=== PATIENT | female | born 1990 | race Caucasian/White ===

== ENCOUNTER → 2022-12-28 09:56 | Outpatient (CLI) | payer OTHER, MEDICAID, SELFPAY ==
[2022-12-28 11:30] LABS: Add Manual Diff / Slide Review NO; Basophils Absolute Auto 0 /uL (0-100); Basophils Percent Auto 0.6 % (0-2); Eosinophils Absolute Auto 0 /uL (0-450); Eosinophils Percent Auto 0.7 % (2-4); Hematocrit 37.5 % (36-46); Hemoglobin 13.5 g/dL (12.0-16.0); Lymphocytes Absolute Auto 1500 /uL (1100-4500); Lymphocytes Percent Auto 23.9 % (25-40); Mean Corpuscular HGB Conc 35.9 % (30-36); Mean Corpuscular Hemoglobin 32.7 PG (26-34); Mean Corpuscular Volume 91.1 fL (80-100); Monocytes Absolute Auto 500 /uL (0-900); Monocytes Percent Auto 7.1 % (3-14); Neutrophils Absolute Auto 4400 /uL (1500-7000); Neutrophils Percent Auto 67.7 % (50-75); Platelet Count 278 X10^3/uL (150-400); Red Blood Cell Count 4.12 X10^6/uL (4.0-5.2); Red Cell Distribution Width 13.5 % (11.6-14.8); White Blood Cell Count 6.5 X10^3/uL (4.5-11.0)
[2022-12-28 12:04] LABS: BUN Creatinine Ratio 11.1 (6-22); Blood Urea Nitrogen 5 mg/dL (7-17); Calcium 9.3 mg/dL (8.4-10.2); Carbon Dioxide 23 mmol/L (22-32); Chloride 100 mmol/L (98-107); Cholesterol 185 mg/dL (140-199); Estimated Glomerular Filt Rate > 60 mL/min (>60); Glucose 87 mg/dL (70-100); HDL Cholesterol 57 mg/dL (40-60); HEMOLYSIS < 15 (0-50); LDL Cholesterol Calculated 108 mg/dL (<100); Potassium 3.6 mmol/L (3.4-5.1); Sodium 134 mmol/L (137-145); Triglycerides 102 mg/dL (35-150)
[2022-12-28 12:21] LABS: Free T4, Direct Thyroxine 1.24 ng/dL (0.78-2.19)
[2022-12-28 12:34] LABS: Thyroid Stimulating Hormone 0.411 uIU/mL (0.47-4.68)
== END ==
PROVIDERS: PCP Family Medicine; Referring Provider Nurse Practitioner Acute Care; Visit Provider Nurse Practitioner Acute Care
DX: R00.2 Palpitations (principal)
CPT/HCPCS: 36415; 80048; 80061; 84439; 84443; 85025

== ENCOUNTER → 2023-03-20 12:43 | Outpatient (CLI) | payer OTHER, MEDICAID, SELFPAY ==
--- NOTE | 2023-03-20 12:45 | DI.US.S_ITS ---
PROCEDURE: US OB >= 14 WEEKS FETUS INDICATIONS: ANATOMY SCAN OUTSIDE/PRIOR DATING DATA: Last menstrual period (LMP): 11/09/2022. LMP-based estimated date of delivery (MIKA): 08/16/2023. First dating scan (date and location): 03/20/2023. Estimated date of delivery (MIKA) from first dating scan: 08/09/2023. The calculations are made using the ultrasound MIKA of 08/09/2023. TECHNIQUE: Real-time scanning was performed of the fetus, with image documentation and biometric measurements. COMPARISON: None. FINDINGS: General: A single living intrauterine gestation is present. Presentation: Variable. Placenta: Placental position is posterior , without previa. Amniotic fluid index: 13.6 cm, normal range is 5-24 cm. Single deepest vertical pocket is 4.2 cm. heart rate: 155 beats per minute. Maternal cervical canal: 6.7 cm long. Normal lower limit is 2.5 cm. biometrics: Biparietal diameter: 4.6 cm 19 weeks 6 days Head circumference: 17.0 cm 19 weeks 4 days Abdominal circumference: 14.8 cm 20 weeks 0 days Femur length: 3.0 cm 19 weeks 2 days Clinically estimated gestational age: 19 weeks 5 days Composite gestational age from present scan: 19 weeks 5 days Estimated weight and percentile: 307 g, percentile unable to be calculated. Anatomic survey: Neuro: Ventricles are non-dilated at less than 10 mm. Cisterna magna is normal at 3-11 mm. Cerebellum is normal in size and morphology. Nuchal skin fold: Normal at less than 6 mm between 14-21 weeks gestational age. Face: Nose and lips, facial profile are well seen. Spine: No evidence for spina bifida. Heart: 4-chambered heart is present, with normal ventricular outflow tracts. Diaphragm: Diaphragm is intact. Stomach: Left-sided stomach is present. Kidneys: No hydronephrosis. Normal is less than 5 mm in 2nd trimester, less than 7 mm in 3rd trimester. Cord: 3-vessel cord has orthotopic insertion. Bladder: Normal in size. Extremities: All 4 extremities identified. IMPRESSION: Single live intrauterine with ultrasound gestational age of 19 weeks 5 days. profile and face are not well seen. Follow-up imaging is recommended. We strive to produce accurate, complete, and clear reports of imaging services. To assist us in improving patient care, this report was composed using standard report templates and voice recognition software. Therefore, it may contain abnormal punctuation, insertions and/or omissions. Occasional wrong-word or sound-alike substitutions may occur. Though we review the report and make efforts to correct it, we do recommend that the report be read carefully in proper context to recognize any text inaccuracies. Dictated by: Santa Pickett M.D. on 03/20/2023 at 16:42 Approved by: Santa Pickett M.D. on 03/20/2023 at 16:44
== END ==
PROVIDERS: PCP Family Medicine; Referring Provider Registered Nurse Women's Health Care, Ambulatory; Visit Provider Registered Nurse Women's Health Care, Ambulatory
DX: Z34.92 Encounter for supervision of normal pregnancy, unspecified, second trimester (principal); Z3A.19 19 weeks gestation of pregnancy
CPT/HCPCS: 76811

== ENCOUNTER → 2023-08-06 09:30 | Oncology outpatient (ONC) | payer OTHER, MEDICAID, SELFPAY ==
[2023-07-04 10:39] VITALS: BP 112/71; PULSE 101; RESP 18; TEMP 36.2; O2SAT 98
[2023-07-04] MEDS: IRON SUCROSE 100 MG in SODIUM CHLORIDE 0.9% 100 ML 420 MG IV (10:58)
[2023-07-04 12:23] VITALS: BP 108/73; PULSE 99; RESP 18; TEMP 36.7; O2SAT 98
[2023-07-09 13:16] VITALS: BP 114/69; PULSE 79; RESP 18; TEMP 36.8; O2SAT 98
[2023-07-09] MEDS: IRON SUCROSE 100 MG in SODIUM CHLORIDE 0.9% 100 ML 150 MG IV (14:29)
[2023-07-11] MEDS: IRON SUCROSE 100 MG in SODIUM CHLORIDE 0.9% 100 ML 420 MG IV (11:00)
[2023-07-11 11:07] VITALS: BP 106/56; PULSE 89; RESP 16; TEMP 36.7; O2SAT 96
[2023-07-17] MEDS: IRON SUCROSE 100 MG in SODIUM CHLORIDE 0.9% 100 ML 420 MG IV (11:16)
[2023-07-19] MEDS: IRON SUCROSE 100 MG in SODIUM CHLORIDE 0.9% 100 ML 420 MG IV (11:47)
[2023-08-06] MEDS: IRON SUCROSE 100 MG in SODIUM CHLORIDE 0.9% 100 ML 420 MG IV (10:00)
== END ==
PROVIDERS: PCP Family Medicine; Referring Provider Registered Nurse Women's Health Care, Ambulatory; Visit Provider Registered Nurse Women's Health Care, Ambulatory
DX: O99.013 Anemia complicating pregnancy, third trimester (principal); D64.9 Anemia, unspecified
CPT/HCPCS: 36415; 96365; 96366; J1756

== ENCOUNTER 2023-08-13 04:36 | Inpatient (IN) | payer OTHER, MEDICAID, SELFPAY ==
--- NOTE | 2023-08-13 04:57 | PM.AN.REGBLK ---
Regional Block Pre-procedure Procedure: Continuous Lumbar Epidural for L&D Attending OB provider: Cathryn Longoria PMH/ROS narrative: term labor, complicated by anemia requiring several Fe infusions, arrived near complete from center/home . No significant PMH. ASA Class: II Allergies: Allergies Allergy/AdvReac Type Severity Reaction Status Date / Time No Known Drug Allergies Allergy Verified 07/04/23 10:58 Procedure Insertion date: 08/13/23 Insertion time: 05:15 Prep/Local: betadine x3 and 1% lidocaine Interspace: L3-4 Patient position: sitting Needle: 18 gauge Hustead (CSE: 27g Pencan through Hustead, clear CSF, 2.5mg MPF bupiv) Loss of resistance with: saline KELLIE at (cm): 5 Catheter placed at SKIN (cm): 10 Catheter in SPACE (cm): 5 Insertion: No CSF, No Blood, No Paresthesia with insertion, No Paresthesia with injection and No Test dose reaction Initial Medications TEST DOSE time: 05:16 TEST DOSE: 1.5% lidocaine with epinephrine 1:200k (mL): 3 BOLUS DOSE time: 05:20 BOLUS DOSE (mL): 4 BOLUS DOSE med: other (infusate) Infusion INFUSION: 0.125% bupivacaine and with fentanyl 2 mcg/mL Initial rate (mL/hr): 8 Subsequent interventions: PCEA 8+4@15min Post-procedure Anesthesia time START: 05:04 Anesthesia time END: 10:03 Post-procedure Anesthesia Assessment: Yes CV function: HR/BP stable, Yes Resp function: RR/sat/airway adequate, Yes Post-op hydration adequate, Yes Pain control adequate, Yes Nausea & vomiting absent, Yes Temperature > 36 C, Yes Mental status appropriate and No Anesthesia complications
[2023-08-13 06:12] LABS: Add Manual Diff / Slide Review NO; Basophils Absolute Auto 0 /uL (0-100); Basophils Percent Auto 0.1 % (0-2); Eosinophils Absolute Auto 0 /uL (0-450); Hematocrit 38.6 % (36-46); Hemoglobin 12.7 g/dL (12.0-16.0); Lymphocytes Absolute Auto 500 /uL (1100-4500); Lymphocytes Percent Auto 2.4 % (25-40); Mean Corpuscular HGB Conc 32.9 % (30-36); Mean Corpuscular Hemoglobin 27.9 PG (26-34); Monocytes Absolute Auto 1100 /uL (0-900); Monocytes Percent Auto 4.9 % (3-14); Neutrophils Absolute Auto 20100 /uL (1500-7000); Neutrophils Percent Auto 92.6 % (50-75); Platelet Count 235 X10^3/uL (150-400); Red Blood Cell Count 4.54 X10^6/uL (4.0-5.2); Red Cell Distribution Width 20.8 % (11.6-14.8); White Blood Cell Count 21.7 X10^3/uL (4.5-11.0)
[2023-08-13 06:37] LABS: Anisocytosis 2+; Macrocytosis 1+; Microcytosis 1+; Polychromasia 1+
[2023-08-13] MEDS: CALCIUM CARBONATE 500 MG TAB 1000 MG PO (06:58)
--- NOTE | 2023-08-13 07:58 | P.HPOB_ITS ---
OB HPI Date/Time Date of admission: 08/13/23 Date Patient Seen: 08/13/23 History of Present Condition Chief complaint: Labor MIKA Calculator 2 Estimated Delivery Date Method Current WG Current Estimate 08/16/23 LMP (Certain) 39w 4d Estimated Gestational Age (weeks): 39w4d : 2 Para: 1 Narrative: Pt is a 33yo at 39w4d here due to prolonged 1st stage of labor with maternal exhaustion, originally in home setting with Kristen Hankins CNM. The pt reports feeling a large gush of fluid yesterday morning around 8:10am. She started julio in the early afternoon. At 00:30 she was 7/90/0. She continued to progress. At 0110 she was 9/90/0 with cervical lip. Due to maternal exhaustion and no change, the decision was made to transfer to the hospital for epidural pain control. The pt is now comfortable with epidural in place. The pt had an uncomplicated . care: good care and initiated at week # (12) Dating criteria OB: based on LMP only Ultrasounds: normal mid trimester US Obstetrical complications: none Medical complications OB: none Preadmission Labs Last OB Lab Results: 2 Blood Type A Positive 08/13/23 04:55 Antibody Screen Negative 08/13/23 04:55 Hematocrit 38.6 % (36-46) 08/13/23 04:55 Hemoglobin 12.7 g/dL (12.0-16.0) 08/13/23 04:55 -: Urine: negative -: PAP smear: Normal External Labs -: HBsAG: negative, GBS status: negative and Urine: negative -: Rubella: not immune Prior (ies) Past Pregnancies Del. Date GA/Weeks Labor Lgth Wt Sex Route Outcome Anesthesia Place Delv Breastfeed Preg Comp Name 12/27/16 39 21 7 lb 8 oz Male vaginal live - full term none Home 3yrs none Tra Evaluation Evaluation Baseline heart rate: 120 Variability: Moderate (11-25) monitor accelerations: Present Monitor Decelerations: Variable Contraction Frequency (minutes): 3 Uterine Contraction Intensity: Strong/Firm Status: Category ll Dilation (cm): 10 Effacement (%): 100 station: +1 Meds Home Medications and Allergies Allergies Allergy/AdvReac Type Severity Reaction Status Date / Time No Known Drug Allergies Allergy Verified 07/04/23 10:58 OB Exam Resp Effort & Inspection: normal respiratory effort Auscultation: clear to auscultation bilaterally Cardio Rate: regular rate Rhythm: regular rhythm Heart Sounds: S1 normal, S2 normal and no murmurs GI Inspection: non-distended Palpation: Yes soft and No tender Presentation: vertex Objective Labs 08/13/23 04:55 Labs: Laboratory Results - last 24 hr 08/13/23 04:55 WBC 21.7 H RBC 4.54 Hgb 12.7 Hct 38.6 MCV 85.0 MCH 27.9 MCHC 32.9 RDW 20.8 H Plt Count 235 Neut % (Auto) 92.6 H Lymph % (Auto) 2.4 L [place] % (Auto) 4.9 Eos % (Auto) 0.0 L Baso % (Auto) 0.1 Neut # (Auto) 62060 H Lymph # (Auto) 500 L [place] # (Auto) 1100 H Eos # (Auto) 0 Baso # (Auto) 0 RBC Morphology See below Polychromasia 1+ H Anisocytosis 2+ H Microcytosis 1+ H Macrocytosis 1+ H Blood Type A Positive Antibody Screen Negative Assessment and Plan Assessment and Plan Assessment and Plan narrative: 33yo at 39w4d here in active labor with prolonged 1st stage, transferred from home. Pt now comfortable with epidural in place. Upon presentation found to be 8-9cm dilated. Now complete and pushing. Has been ruptured for 24hrs, no signs of chorioamnionitis - no antibiotics indicated. GBS negative, Rh positive. - Expectant management, anticipate - Baby palpates OP/OT position. Will try position changes to hopefully help rotation. - FHT reassuring - Epidural in place for pain control
[2023-08-13 08:46] LABS: HIV 1 & 2 Ab/Ag 4th Gen Combo NEGATIVE (NEGATIVE)
[2023-08-13] MEDS: OXYTOCIN PREMIX 30 UNIT/500 ML PLAST..BAG 200 UNIT IV (09:58)
--- NOTE | 2023-08-13 10:44 | PM.OBPRVD ---
Labor & Delivery Delivery date: 08/13/23 Intrapartal Events: Prolonged Labor > 20 hours and Prolonged Active Phase Cervical ripening method: none Induction method: none Delivery monitor: external FHT and external uterine Route of delivery: Episiotomy description: None L&D Laceration Description: Perineal - 2nd Degree Delivery repair: vicryl Quantitative Blood Loss: 100 Anesthesia Type: Epidural Complications: None Narrative: PROCEDURE: at 39w4d presented in active labor, transfer from home due to prolonged 1st stage, and was admitted to Labor and Delivery. The patient progressed through the 1st stage over 22 hours. ROM occured at 8:20 on 08/12 with clear fluid. Pain was controlled with an epidural. The patient progressed through the 2nd stage over 2.5 hours and delivered a viable female with APGARs 8/9 at 9:52 via without complications. The cord was cut and clamped after it stopped pulsating. The placenta delivered with gentle cord traction, and appeared complete. The perineum and vagina were inspected with 2nd degree perineal laceration repaired with 2-O Vicryl in the usual fashion. Needle and sponge counts were correct.? The vagina was inspected and no items were left in situ. Christine was doing well with her and her at bedside. PREPROCEDURE DIAGNOSIS: Intrauterine at 39w4d GBS negative RH positive POSTPROCEDURE DIAGNOSIS: Intrauterine at 39w4d, delivered Same as preprocedure [place] Baby 1: gender: Female Presentation: vertex Position: Right Occiput Anterior Placenta delivery description: Spontaneous Cord Vessel Description: 3 Vessels score (1 min): 8 score (5 min): 9 weight: 9 lb 4.186 oz Plan for aftercare: Routine care
[2023-08-13] MEDS: IBUPROFEN 600 MG TABLET PO ×2 (11:26→18:22)
[2023-08-13] MEDS: ACETAMINOPHEN 325 MG TABLET 650 MG PO ×2 (11:26→18:22)
[2023-08-13 20:18] VITALS: BP 91/52
[2023-08-14] MEDS: ACETAMINOPHEN 325 MG TABLET 650 MG PO ×3 (00:39→12:39)
[2023-08-14] MEDS: IBUPROFEN 600 MG TABLET PO ×3 (00:39→12:38)
[2023-08-14 05:53] LABS: RPR Screen Non Reactive (Non Reactive)
--- NOTE | 2023-08-14 08:44 | PM.OBDS.1 ---
Discharge Providers Provider Date of admission: 08/13/23 04:36 Discharge Date: 08/14/23 Primary care physician: Shari Mckeon DO Consults: 08/13/23 05:56 Consult to Anesthesiology Urgent Comment: Consulting Provider: Carroll Gómez Reason for consultation: Epidural 08/14/23 10:43 Consult to [employer]er Routine Comment: Discharge provider: Cathryn Longoria MD Summary Hospital Course Date Patient Seen: 08/14/23 Diagnoses: Intrauterine at 39w4d GBS negative RH positive LGA without complications Hospital Course: The pt presented for pain management and prolonged 1st stage of labor after trial for home . She received an epidural for pain control. She progressed to complete and had an of a viable baby girl without complications. A 2nd degree perineal laceration was then repaired. , there were no complications. At the time of discharge she was voiding, ambulating, and passing flatus without difficulty. Her lochia was decreasing appropriately. Her pain was well controlled. She will f/u in 6 weeks for check. She is with good latch. Her plans on vasectomy for contraception. She will f/u with her environmental coordinator for check. Peripartum Data Delivery Method: Natural Vaginal Laceration Description: Perineal - 2nd Degree Episiotomy description: None Procedures: Spontaneous vaginal delivery complications: none [place] 1: Gender: Female Disposition of : home Time Spent with Patient Time attestation: Total time spent providing and/or coordinating discharge services: Objective Labs 08/13/23 04:55 Labs: Laboratory Results - last 24 hr 08/13/23 06:25 Serum VDRL Non reactive HIV 1&2 Ab/P24 Ag 4thGn Negative Exam Narrative Exam Narrative: Gen: NAD, sitting comfortably in bed, appears well CV: RRR, no murmurs Resp: clear to auscultation bilaterally Abd: soft, appropriately tender, fundus firm and below the umbilicus, nondistended Ext: no edema Discharge Plan Discharge Plan Patient Disposition: Home Discharge orders & Medications Follow up/Referrals: Shari Mckeon DO [Primary Care Provider] - Diet/Activity/Treatments Diet: Diet as Tolerated and Regular Skin/Wound/Dressing Care Report to your healthcare provider any signs of infection, such as:: chills, fever, increased pain and unusual drainage Visit Report/Discharge Packet Instructions: DI for Labor and Delivery, Vaginal Stand Alone Forms: Patient Portal/API, Stroke Signs & Symptoms Discharge Data Primary Care Provider: Shari Mckeon
[2023-08-14 13:03] VITALS: BP 91/54; PULSE 77; RESP 14; TEMP 36.7
== END 2023-08-14 12:48 | disposition home or self-care (01) | DRG 560 ==
PROVIDERS: Admitting Provider Family Medicine; PCP Family Medicine; Referring Provider Family Medicine; Visit Provider Family Medicine
DX: O63.0 Prolonged first stage (of labor) (principal); O70.1 Second degree perineal laceration during delivery; O42.02 Full-term premature rupture of membranes, onset of labor within 24 hours of rupture; Z3A.39 39 weeks gestation of pregnancy; Z37.0 Single live birth
CPT/HCPCS: 36415; 59050; 59409; 85025; 86592; 86850; 86900; 86901; 87389; 99222; 99238; G0379; J2590